=== PATIENT | female | born 1950 | race Caucasian/White ===

== ENCOUNTER → 2025-03-09 | Outpatient (CLI) | payer MEDICARE, BC, SELFPAY ==
[2025-03-09 14:32] LABS: Basophils # (Auto) 0.1 Thou/mm3 (0.0-0.2); Basophils % (Auto) 1 % (0-2.5); Eosinophils # (Auto) 0.2 Thou/mm3 (0.0-0.5); Eosinophils % (Auto) 2 % (0-10); Hematocrit 40.5 % (36.0-46.0); Hemoglobin 13.2 g/dL (12.0-16.0); Immature Granulocytes Auto 0.02 Thou/mm3 (0.00-0.00); Lymphocytes # (Auto) 2.4 Thou/mm3 (1.0-4.8); Lymphocytes % (Auto) 31 % (10-50); Mean Corpuscular HGB Conc 32.6 g/dl (31.0-37.0); Mean Corpuscular Hemoglobin 30.4 pg (25.0-35.0); Mean Corpuscular Volume 93 fL (80-100); Monocytes # (Auto) 0.6 Thou/mm3 (0.0-0.8); Monocytes % (Auto) 7 % (0-12); Neutrophils # (Auto) 4.4 Thou/mm3 (1.8-7.7); Neutrophils % (Auto) 58 % (37-80); Nucleated Red Blood Cell # 0.00 Thou/mm3 (0.00-0.00); Nucleated Red Blood Cell % 0 /100 WBC (0); Platelet Count 303 Thou/mm3 (140-440); RDW Standard Deviation 46.4 fL (36.4-46.3); Red Blood Count 4.34 Miln/mm3 (4.00-5.20); White Blood Count 7.5 Thou/mm3 (3.6-11.0)
[2025-03-09 14:43] LABS: Glucose Estimated Average 126 mg/dL (80-131); Hemoglobin A1C 6.0 % Hgb (4.8-6.0)
[2025-03-09 15:04] LABS: Alanine Aminotransferase 11 U/L (10-49); Albumin, Serum 4.8 gm/dL (3.4-4.8); Albumin/Globulin Ratio 2.1 (1.2-2.2); Alkaline Phosphatase 77 U/L (46-116); Anion Gap 9 (7-16); Aspartate Amino Transferase 20 U/L (0-34); BUN/Creatinine Ratio 12 Ratio (12-20); Bilirubin,Total 0.8 mg/dL (0.3-1.2); Blood Urea Nitrogen 12 mg/dL (9-23); Calcium 10.7 mg/dL (8.3-10.6); Calcium (Corrected) 10.7 mg/dL (8.5-10.1); Carbon Dioxide 30.1 mMol/L (20.0-31.0); Cardiac Risk Estimate 2.9 RATIO (3.7-5.6); Chloride 103 mMol/L (98-107); Cholesterol 222 mg/dL (132-200); Creatinine (Component) 1.0 mg/dL (0.6-1.3); Free T4 (Free Thyroxine) 0.93 ng/dL (0.89-1.76); Globulin 2.3 gm/dL (2.3-3.5); Glucose 96 mg/dL (74-106); HDL Cholesterol 77 mg/dL (40-60); LDL Cholesterol,Calculated 95 mg/dL (0-130); Osmolality,Calculated 282 (275-295); Potassium 4.0 mMol/L (3.4-5.1); Sodium 142 mMol/L (136-145); Thyroid Stimulating Hormone 6.92 uIU/mL (0.55-4.78); Total Protein 7.1 gm/dL (5.7-8.2); Triglycerides 251 mg/dL (30-150); eGFR 59 See Note
== END | disposition home or self-care (01) ==
LOC: COPL 13:27
PROVIDERS: PCP Nurse Practitioner Family; Referring Provider Nurse Practitioner Family; Visit Provider Nurse Practitioner Family
DX: Z00.00 Encounter for general adult medical examination without abnormal findings (principal); E03.9 Hypothyroidism, unspecified; E78.2 Mixed hyperlipidemia; I10 Essential (primary) hypertension; R73.03 Prediabetes
CPT/HCPCS: 36415; 80053; 80061; 83036; 84439; 84443; 85025

== ENCOUNTER → 2025-03-30 | Outpatient (CLI) | payer MEDICARE, BC, SELFPAY ==
--- NOTE | 2025-03-30 13:00 | XR_ITS ---
Examination: Screening digital mammography, bilateral Computer aided detection 3-D breast Tomosynthesis, bilateral Date and time of exam: March 30, 2025, 1250 hours, compared to mammograms dating to October 13, 2015 Indication: Screening Technique: Nonmagnified MLO, CC views of the breasts to been obtained, reconstructed from 3-D Tomosynthesis images. R2 computer aided detection program utilized for evaluation of suspicious masses and/or abnormal calcifications. 3-D Tomosynthesis images obtained. Findings: The breasts are heterogeneously dense, which may obscure small masses 8mm nodule indistinct margins 12:00 position left breast anterior depth Benign calcifications Impression: BI-RADS Category 0: Incomplete: Need additional imaging evaluation Recommend follow-up spot tomographic views of 8 mm nodule indistinct margins 12:00 position left breast as well as bilateral breast sonography to complete the workup
--- NOTE | 2025-03-30 13:15 | XR_ITS ---
Examination: Bone densitometry Date and time of exam:March 30, 2025 1309 hours INDICATIONS: Hysterectomy age 33 levothyroxine 2 years, family history mother father osteoporosis, personal history osteopenia Technique: Lumbar spine and hip total bone mineralization values of an calculated. Peak reference and age match control results have been displayed. Findings: Lumbar spine total bone mineralization is0.934 gm/cm2. This is 1.0 standard deviations below peak reference. This is 1.4 standard deviations above age-matched controls. Hip total bone mineralization is 0.859 gm/cm2 This is 0.7 standard deviations below peak reference. This is 1.1 standard deviations above age-matched controls Impression: There is normal mineralization based on lumbar spine measurements. There is osteopenia based on hip measurements Lumbar mineralization is increased 4.2% compared with 04/01/2019 Hip mineralization is increase 4.0% compared with 04/01/2019
== END | disposition home or self-care (01) ==
PROVIDERS: PCP Family Medicine; Referring Provider Nurse Practitioner Family; Visit Provider Nurse Practitioner Family
DX: Z12.31 Encounter for screening mammogram for malignant neoplasm of breast (principal); R92.8 Other abnormal and inconclusive findings on diagnostic imaging of breast; N63.25 Unspecified lump in the left breast, overlapping quadrants; M85.89 Other specified disorders of bone density and structure, multiple sites
CPT/HCPCS: 77063; 77067; 77080

== ENCOUNTER 2025-04-21 08:26 | Outpatient (AMB) | payer MEDICARE, BC, SELFPAY ==
[2025-04-21 08:35] VITALS: BP 145/90; PULSE 68; RESP 14; TEMP 36.5; O2SAT 95; BMI 28.5
--- NOTE | 2025-04-21 08:35 | GYNCLNT_ITS ---
Vital Signs 04/21/25 08:35 Height 1.63 m Height Method Stated Weight 75.466 kg Weight Measurement Method Standing Scale BMI 28.5 BP 145/90 H Blood Pressure Source Automatic Cuff Blood Pressure Location Left Upper Arm Position Sitting Respiration 14 Pulse 68 Pulse Source Monitor Temp 97.7 F Temp Source Oral Pulse Oximetry (%) 95 Oxygen Delivery Method Room Air Allergies/Home Meds Allergies & Medications Allergies No Known Allergies Allergy (Verified 04/21/25 08:43) Medication Reconciliation No Known Home Medications 04/21/25 [History Confirmed 04/21/25] Intake Visit Data Collection New Patient or Established: Established Patient (seen at [facility] [place] Reason for Visit:: REFERRAL CHRONIC VAGINITIS Seen by Clinical Staff ONLY (RN/MA): No 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 Do You Feel Safe at Home: Yes Authorities Contacted: N/A PCP or OBGYN visit in last 3 months: Yes Hx Now: No Are you currently on any form of Control: No Pain Present Currently: No Pain Scale Used: Leyva-Rice/Numerical Pain scale:: 0 Smoking Status Smoking Status: Never smoker 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 1. Little interest or pleasure in doing things: not at all 2. Feeling down, depressed, or hopeless: not at all Total score: 0 PHQ-9 3. Trouble falling or staying asleep, or sleeping too much: Not at all 4. Feeling tired or having little energy: Not at all 5. Poor appetite or overeating: Not at all 6. Feeling bad about yourself - or that you are a failure or have let yourself or your family down: Not at all 7. Trouble concentrating on things, such as reading the newspaper or watching television: Not at all 8. Moving or speaking so slowly that other people could have noticed? - Or the opposite - being so fidgety or restless that you have been moving around a lot more than usual: not at all 9. Thoughts that you would be better off or of hurting yourself in some way: Not at all Total score: 0 Source: Developed by Drs. Kory Ashton, Stephanie Young, Magdaleno Kasper and colleagues, with an educational molly from [employer]. Depression screen completed yes Social History Living Situation History Marital Status: Lives With: Spouse Housing: House Tobacco History Smoking Status: Never smoker Second Hand Smoke Exposure: No Alcohol History Alcohol Intake: Former Alcohol Intake Frequency: holidays/special occasions only Domestic Abuse History Do You Feel Safe at Home: Yes History of Present Illness HPI Narrative Vaginal dryness and discomfort with little white bumps for a couple of months Rosalba Ribera presents with vaginal dryness, discomfort, and small white bumps that she has noticed for approximately a couple of months. She reports experiencing some dryness prior to the onset of the bumps. The bumps are located close to the outside lip area and are not painful to touch. She underwent total hysterectomy with bilateral oophorectomy at age 33 for endometriosis, placing her in surgical menopause for approximately 40 years. The patient also mentions chronic scalp itching that has been ongoing. She has tried changing shampoos without improvement and has seen two dermatologists who provided liquid treatments that offer temporary relief but the symptoms return. She reports missing her mammogram last year and mentions having to return for repeat imaging with ultrasound on both breasts after feeling a lump, though she states it wasn't anything concerning. Medical History: - Endometriosis Surgical History: - Total hysterectomy with bilateral salpingo-oophorectomy at age 33 for endometriosis Exam Narrative Physical exam: Small white bumps noted on external labial area. No skin lesions identified on vulvar examination. General General Appearance: alert, in no apparent distress and healthy appearing Head Head exam: atraumatic Neck Neck exam: Present normal inspection and trachea midline Chest Chest inspection: Present normal inspection and symmetric chest wall rise External exam: Present normal external exam; Absent tenderness Neuro Neurological exam: Present oriented X3 Psych Psychiatric exam: Present normal affect and normal mood Office Procedures OBC Clinic LOC & Office Proc's Nursing/Assessment Patient Status: Established Patient OB Clinic Nursing Assessment: Medication Reconciliation, Update PMH in EMR and Vital Signs OB Clinic Coordination of Care: Complex Care and Chronic Disease 1-5, Consent,records obtained, informed consent, Education Simp Pt/Fam, 1 Ins Autho rization, Lab and Imaging orders, Results/Orders obtained and Staff clarify orders Established Patient Charge Established Patient Point Assignment: 120 Established Patient Point Charge: EP Level 4 (120-155) Assessment & Plan Diagnosis / Problem List (1) Postmenopausal atrophic vaginitis: Status: Acute (2) Other pruritus: Status: Acute Plan Atrophic vaginitis Assessment: Patient presents with vaginal dryness and white bumps near the vulvar area of 2 months duration. She underwent total hysterectomy with bilateral oophorectomy at age 33 for endometriosis, resulting in surgical menopause 40 years ago. Physical examination reveals findings consistent with atrophic vaginitis, which typically occurs 25-30 years after menopause due to prolonged estrogen deficiency causing tissues to dry and become parchment-like. No skin lesions were identified on examination. The presentation is not consistent with herpes or malignancy. Plan: - Prescribe low-dose estrogen cream to apply to affected area for 2 months - Treatment typically takes about 1 month to be effective and provides benefit for 2-3 years - Follow-up visit in 2 months to assess treatment response - Prescription to be sent to [facility] on [place] Scalp pruritus Assessment: Patient reports chronic scalp itching that has not responded to shampoo changes or treatments from two dermatologists. Previous dermatology treatments provided temporary relief only. Plan: - Trial vinegar scalp massage: mix 1 tablespoon vinegar with twice as much water, massage into scalp in shower, wash off immediately to remove dried skin Advanced Care Planning Advance care planning discussed with:: patient
== END 2025-04-21 08:58 | disposition home or self-care (01) ==
LOC: HODSOBC 08:26
PROVIDERS: Supervising Provider Obstetrics & Gynecology; Visit Provider Obstetrics & Gynecology
DX: N95.2 Postmenopausal atrophic vaginitis (principal); L29.89 Other pruritus; Z90.710 Acquired absence of both cervix and uterus; Z90.722 Acquired absence of ovaries, bilateral; Z90.79 Acquired absence of other genital organ(s); Z87.42 Personal history of other diseases of the female genital tract
CPT/HCPCS: 99214; G0463

== ENCOUNTER → 2025-04-22 | Outpatient (CLI) | payer MEDICARE, BC, SELFPAY ==
--- NOTE | 2025-04-22 10:30 | XR_ITS ---
Examination: Breast ultrasound complete, bilateral Date and time of exam: April 22, 2025, 1040 hours INDICATIONS: Mammogram 03/30/2025 8 mm nodule indistinct margins left breast 12 o'clock position Technique: Real-time grayscale ultrasonographic imaging bilateral breasts, including all 4 quadrants as well as nipple retroareolar and axillary regions. Findings: 12:00 cyst 2 x 2 mm No solid nodules IMPRESSION: BI-RADS Category 2: Benign findings
--- NOTE | 2025-04-22 11:30 | XR_ITS ---
Examination: Diagnostic digital mammography, unilateral, left Computer aided detection 3-D breast Tomosynthesis, unilateral Date and time of exam: 04/22/2025, 11:06 a.m. Comparisons: December 2017 through March 2025 Indications: Further evaluation of abnormality seen on screening exam. Technique: Nonmagnified MLO, CC views of the left breast have been obtained, reconstructed from 3-D Tomosynthesis images. R2 computer aided detection program utilized for evaluation of suspicious masses and/or abnormal calcifications. 3-D Tomosynthesis images obtained. Technologist: Findings: The breasts are heterogeneously dense, which may obscure small masses. No evidence of abnormal masses or suspicious calcifications.The previously described abnormality does not persist on spot compression views and represents superposition of normal fibroglandular tissue. Impression: BI-RADS category 1: Negative findings (within normal) Recommend 1 year follow-up mammogram
== END | disposition home or self-care (01) ==
PROVIDERS: PCP Nurse Practitioner Family; Referring Provider Nurse Practitioner Family; Visit Provider Nurse Practitioner Family
DX: R92.313 Mammographic fatty tissue density, bilateral breasts (principal)
CPT/HCPCS: 76641; 77061; 77065; G0279

== ENCOUNTER → 2025-05-13 | Outpatient (CLI) | payer MEDICARE, BC, SELFPAY ==
[2025-05-13 11:46] LABS: Anion Gap 7 (7-16); BUN/Creatinine Ratio 13 Ratio (12-20); Blood Urea Nitrogen 12 mg/dL (9-23); Calcium 9.5 mg/dL (8.3-10.6); Carbon Dioxide 30.9 mMol/L (20.0-31.0); Chloride 102 mMol/L (98-107); Creatinine (Component) 0.9 mg/dL (0.6-1.3); Free T4 (Free Thyroxine) 0.91 ng/dL (0.89-1.76); Glucose 103 mg/dL (74-106); Osmolality,Calculated 279 (275-295); Potassium 5.2 mMol/L (3.4-5.1); Sodium 140 mMol/L (136-145); Thyroid Stimulating Hormone 2.53 uIU/mL (0.55-4.78); eGFR > 60 See Note
== END | disposition home or self-care (01) ==
LOC: COPL 10:53
PROVIDERS: PCP Nurse Practitioner Family; Referring Provider Nurse Practitioner Family; Visit Provider Nurse Practitioner Family
DX: E03.9 Hypothyroidism, unspecified (principal); N18.30 Chronic kidney disease, stage 3 unspecified
CPT/HCPCS: 36415; 80048; 84439; 84443

== ENCOUNTER 2025-06-21 09:53 | Outpatient (AMB) | payer MEDICARE, BC, SELFPAY ==
[2025-06-21 10:25] VITALS: BP 165/83; PULSE 63; RESP 18; TEMP 36.1; O2SAT 94; BMI 28.6
--- NOTE | 2025-06-21 10:25 | AMB.GYNCLNOT ---
Vital Signs 06/21/25 10:25 Height 1.63 m Height Method Stated Weight 76.204 kg Weight Measurement Method Standing Scale BMI 28.6 BP 165/83 H Blood Pressure Source Automatic Cuff Blood Pressure Location Left Upper Arm Position Sitting Respiration 18 Pulse 63 Pulse Source Monitor Temp 97.0 F Temp Source Temporal Artery Scan Pulse Oximetry (%) 94 L Oxygen Delivery Method Room Air Allergies/Home Meds Allergies & Medications Allergies No Known Allergies Allergy (Verified 06/21/25 10:26) Medication Reconciliation estradiol 0.01% (0.1 mg/gram) vaginal cream 1 g vaginal QDAY 30 days #42.5 grams 06/21/25 [Rx] Intake Visit Data Collection New Patient or Established: Established Patient (seen at [facility] within 3 years) Reason for Visit:: FOLLOW UP POST MENOPAUSAL Seen by Clinical Staff ONLY (RN/MA): No Director Of Sports Performance Required: No Do You Feel Safe at Home: Yes Authorities Contacted: N/A PCP or OBGYN visit in last 3 months: Yes Date of Last PCP or OBGYN visit: 04/21/25 Hx Now: No Are you currently on any form of Control: No Pain Present Currently: No Pain Scale Used: Leyva-Rice/Numerical Pain scale:: 0 Smoking Status Smoking Status: Never smoker Immunizations Flu Vaccine in the Last 12 Months: No Flu Vaccine Exclusion Criteria: No Exclusion Criteria 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 1. Little interest or pleasure in doing things: not at all 2. Feeling down, depressed, or hopeless: not at all Total score: 0 PHQ-9 3. Trouble falling or staying asleep, or sleeping too much: Not at all 4. Feeling tired or having little energy: Not at all 5. Poor appetite or overeating: Not at all 6. Feeling bad about yourself - or that you are a failure or have let yourself or your family down: Not at all 7. Trouble concentrating on things, such as reading the newspaper or watching television: Not at all 8. Moving or speaking so slowly that other people could have noticed? - Or the opposite - being so fidgety or restless that you have been moving around a lot more than usual: not at all 9. Thoughts that you would be better off or of hurting yourself in some way: Not at all Total score: 0 If you checked off any problems, how difficult have these problems made it for you to do your work, take care of things at home, or get along with other people?: not difficult at all Source: Developed by Drs. Kory Ashton, Stephanie Young, Magdaleno Kasper and colleagues, with an educational molly from [employer]. Depression screen completed yes Social History Living Situation History Marital Status: Lives With: Spouse Housing: House Tobacco History Smoking Status: Never smoker Second Hand Smoke Exposure: No Alcohol History Alcohol Intake: Former Alcohol Intake Frequency: holidays/special occasions only Domestic Abuse History Do You Feel Safe at Home: Yes History of Present Illness HPI Narrative Rosalba Ribera returns for follow-up of a skin condition that has been treated with topical cream. The patient reports improvement in her symptoms, noting there is less irritation and redness since starting the prescribed cream treatment. She is feeling better overall with the current regimen. Additionally, the patient reports ear-related symptoms including pain and headaches. She denies having a sore throat and states her nose is open, but experiences headaches that she attributes to possible glandular involvement in the area. She has already been evaluated by her primary care physician, Dr. Kirkland at [facility]'s office, who performed ear irrigation but provided no other interventions. The patient expresses frustration that that's all they do regarding the treatment she received. The patient has been taking cream for irritation and redness and reports feeling better with less irritation and redness. ROS: HEENT: Positive for ear pain and headache. Negative for sore throat. Reports nose is open. Exam General General Appearance: alert, in no apparent distress and healthy appearing Head Head exam: atraumatic Neck Neck exam: Present normal inspection and trachea midline Chest Chest inspection: Present normal inspection and symmetric chest wall rise External exam: Present normal external exam; Absent tenderness Neuro Neurological exam: Present oriented X3 Psych Psychiatric exam: Present normal affect and normal mood Office Procedures OBC Clinic LOC & Office Proc's Nursing/Assessment Patient Status: Established Patient OB Clinic Nursing Assessment: Medication Reconciliation, Update PMH in EMR and Vital Signs OB Clinic Coordination of Care: Complex Care and Chronic Disease 1-5, Education Complex Pt/Fam, Consent,records obtained, informed consent, Lab and Imaging orders, Results/Orders obtained and Staff clarify orders Established Patient Charge Established Patient Point Assignment: 110 Established Patient Point Charge: EP Level 3 (80-115) Assessment & Plan Diagnosis / Problem List (1) Other pruritus: Status: Acute (2) Postmenopausal atrophic vaginitis: Status: Acute Plan Dermatologic condition with irritation and redness: - Patient reports improvement in irritation and redness with current topical cream treatment. - Symptoms are responding well to current therapy. Plan: - Continue current topical cream treatment for 6 months. - Provide 6 months of refills for the cream. - Follow-up in 6 months for reassessment. Ear pain with headaches: - Patient reports ear pain without sore throat, with open nasal passages but experiencing headaches possibly related to glandular involvement. - Patient previously seen by primary care physician Dr. Kirkland who performed ear irrigation with minimal intervention. Plan: - Consider referral to Dr. Bearden (ENT specialist) if available at [facility]. - Patient advised to contact [facility] to check availability dates for Dr. Bearden. - Alternative option to request primary care physician (Dr. Kirkland) for specialist referral. Advanced Care Planning Advance care planning discussed with:: patient
== END 2025-06-21 10:44 | disposition home or self-care (01) ==
LOC: HODSOBC 09:53
PROVIDERS: Supervising Provider Obstetrics & Gynecology; Visit Provider Obstetrics & Gynecology
DX: L29.89 Other pruritus (principal); N95.2 Postmenopausal atrophic vaginitis; R51.9 Headache, unspecified; H92.09 Otalgia, unspecified ear
CPT/HCPCS: 99213; G0463